=== PATIENT | female | born 1985 | race Caucasian/White ===

== ENCOUNTER 2019-02-07 17:34 | Emergency (ER) | payer SELFPAY ==
[~2019-02-07] VITALS: Ht 149.9 cm; Wt 49.6 kg
[2019-02-07 17:39] VITALS: BP 128/90
--- NOTE | 2019-02-07 17:45 | NUR ---
LEAD ATG DEVELOPER: FLAKITA PAGED FOR PT TO PROVIDE RESOURCES FOR SAFE DC.
[2019-02-07] MEDS ORDERED: KETOROLAC 30 MG/1 ML IM ONE (19:30)
[2019-02-07] MEDS ORDERED: KETOROLAC 30 MG/1 ML ONE (19:44)
== END 2019-02-07 20:34 | disposition home or self-care (01) ==
LOC: ED 20:10
DX: S00.83XA Contusion of other part of head, initial encounter (principal); G89.11 Acute pain due to trauma; F17.200 Nicotine dependence, unspecified, uncomplicated; F11.10 Opioid abuse, uncomplicated; F15.10 Other stimulant abuse, uncomplicated; R07.89 Other chest pain; R51 Headache; Z72.9 Problem related to lifestyle, unspecified; Z75.9 Unspecified problem related to medical facilities and other health care; Z63.8 Other specified problems related to primary support group; X58.XXXA Exposure to other specified factors, initial encounter; Y93.89 Activity, other specified; Y92.89 Other specified places as the place of occurrence of the external cause; Y99.8 Other external cause status
CPT/HCPCS: 70486; 71046; 73030; 96372; 99284; J1885; 99283

== ENCOUNTER 2019-04-08 02:45 | Emergency (ER) | payer SELFPAY ==
[~2019-04-08] VITALS: Ht 149.9 cm; Wt 51.5 kg
[2019-04-08 02:49] VITALS: BP 123/73
--- NOTE | 2019-04-08 03:14 | NUR ---
DR. MARTE AT BEDSIDE AT BEDSIDE EVALUATING PT
[2019-04-08] MEDS ORDERED: AZITHROMYCIN 500 MG TABLET PO ONE (03:30)
[2019-04-08] MEDS ORDERED: CEFTRIAXONE 250 MG IM ONE (03:30)
[2019-04-08] MEDS ORDERED: CEFTRIAXONE 250 MG ONE (03:33)
[2019-04-08] MEDS ORDERED: AZITHROMYCIN 250 MG TABLET ONE (03:33)
--- NOTE | 2019-04-08 03:41 | NUR ---
PT MEDCIATED PER EMAR, 5 RIGHTS ADDRESSED.
--- NOTE | 2019-04-08 03:54 | NUR ---
URINE SAMPLE PROVIDED BY PT. SENT TO LAB
[2019-04-08 04:09] LABS: CULTURE INDICATED? YES; HCG UR SG 1.016 (1.003-1.030); MICROSCOPIC AUTO
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
--- NOTE | 2019-04-08 04:44 | NUR ---
I SPOKE WITH ZAYRA FROM THE [facility]ISIS C[facility]. HE STATES THE PT CAN BE EVALUATED TONIGHT. PT PROVIDED WITH A CAB VOUCHER TO EXAM CENTER ON [address].
--- NOTE | 2019-04-08 04:55 | NUR ---
Patient/Caregiver given discharge instructions and they have confirmed that they understand the instructions. Patient ambulatory with steady gait.
== END 2019-04-08 04:56 | disposition home or self-care (01) ==
LOC: ED 03:48
DX: S70.02XA Contusion of left hip, initial encounter (principal); T76.21XA Adult sexual abuse, suspected, initial encounter; I10 Essential (primary) hypertension; F17.200 Nicotine dependence, unspecified, uncomplicated; X58.XXXA Exposure to other specified factors, initial encounter; Y93.89 Activity, other specified; Y92.009 Unspecified place in unspecified non-institutional (private) residence as the place of occurrence of the external cause; Y99.8 Other external cause status
CPT/HCPCS: 81001; 81025; 87077; 87086; 87491; 87591; 96372; 99283; J0696; 87186

== ENCOUNTER 2019-12-22 17:31 | Emergency (ER) | payer MEDICAID ==
[~2019-12-22] VITALS: Ht 149.9 cm; Wt 56.1 kg
[2019-12-22 17:40] VITALS: BP 110/50
--- NOTE | 2019-12-22 19:06 | NUR ---
PT TO ROOM FROM LOBBY
[2019-12-22 19:50] LABS: BASOPHILS # (AUTO) 0.05 x10^3/uL (0-0.1); BASOPHILS % (AUTO) 0 % (0-1); EOSINOPHILS # (AUTO) 0.22 x10^3/uL (0-0.4); EOSINOPHILS % (AUTO) 2 % (1-7); LYMPHOCYTES # (AUTO) 1.76 x10^3/uL (1-3.4); LYMPHOCYTES % (AUTO) 13 % (22-44); MD NO; MEAN CORPUSCULAR HEMOGLOBIN 28.7 pg (27.0-34.8); MEAN CORPUSCULAR HGB CONC 32.9 g/dL (32.4-35.8); MEAN CORPUSCULAR VOLUME 87.4 fL (80-100); MEAN PLATELET VOLUME 8.3 fL (7.4-10.4); MONOCYTES # (AUTO) 0.65 x10^3/uL (0.2-0.8); MONOCYTES % (AUTO) 5 % (2-9); NEUTROPHILS # (AUTO) 10.97 x10^3/uL (1.8-6.8); NEUTROPHILS % (AUTO) 80 % (42-75); PLATELET COUNT 250 x10^3/uL (130-400); RED BLOOD COUNT 4.82 x10^6/uL (3.82-5.3); RED CELL DISTRIBUTION WIDTH 14.4 % (9.6-15.2)
--- NOTE | 2019-12-22 20:25 | NUR ---
PT AMBULATORY TO THE BATHROOM WITH STEADY GAIT
[2019-12-22 20:32] LABS: ALBUMIN 3.5 g/dL (3.4-5.0); ANION GAP 4 mmol/L (5-15); CHLORIDE 104 mmol/L (98-107)
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
[2019-12-22] MEDS ORDERED: LORazepam 1MG TABLET PO ONE (21:00)
--- NOTE | 2019-12-22 21:03 | NUR ---
PT REFUSING UA AND PT REFUSING VITALS
--- NOTE | 2019-12-22 21:04 | NUR ---
ER MD HANNA STATES NOT NEED FOR MRI. PT TO BE DISCHARGED.
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
--- NOTE | 2019-12-22 21:31 | NUR ---
JACQUES IN WITH PT NOW
== END 2019-12-22 21:49 | disposition home or self-care (01) ==
LOC: ED 21:33
DX: F13.10 Sedative, hypnotic or anxiolytic abuse, uncomplicated (principal); I10 Essential (primary) hypertension; R51 Headache
CPT/HCPCS: 36415; 70450; 80048; 80307; 82040; 84703; 85025; 93005; 99284

== ENCOUNTER 2020-02-07 16:14 | Emergency (ER) | payer MEDICAID ==
[~2020-02-07] VITALS: Ht 149.9 cm; Wt 55.8 kg
--- NOTE | 2020-02-07 17:45 | NUR ---
MALCOLM ALONSO AT BEDSIDE FOR EVAL.
[2020-02-07] MEDS ORDERED: ONDANSETRON 2MG/ML, 2ML IVPush ONE (18:00)
[2020-02-07] MEDS ORDERED: SODIUM CHLORIDE FLUSH 10ML SYR IVF ONE (18:00)
[2020-02-07] MEDS ORDERED: SODIUM CHLORIDE 0.9% 1,000ML IVBOLUS ONE (18:00)
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
[2020-02-07 18:22] LABS: BASOPHILS # (AUTO) 0.03 x10^3/uL (0-0.1); BASOPHILS % (AUTO) 0 % (0-1); EOSINOPHILS # (AUTO) 0.51 x10^3/uL (0-0.4); EOSINOPHILS % (AUTO) 6 % (1-7); LYMPHOCYTES # (AUTO) 2.15 x10^3/uL (1-3.4); LYMPHOCYTES % (AUTO) 24 % (22-44); MD NO; MEAN CORPUSCULAR HEMOGLOBIN 28.7 pg (27.0-34.8); MEAN CORPUSCULAR HGB CONC 33.2 g/dL (32.4-35.8); MEAN CORPUSCULAR VOLUME 86.4 fL (80-100); MEAN PLATELET VOLUME 8.5 fL (7.4-10.4); MONOCYTES % (AUTO) 7 % (2-9); NEUTROPHILS # (AUTO) 5.53 x10^3/uL (1.8-6.8); NEUTROPHILS % (AUTO) 63 % (42-75); PLATELET COUNT 320 x10^3/uL (130-400); RED BLOOD COUNT 4.95 x10^6/uL (3.82-5.3)
--- NOTE | 2020-02-07 18:30 | NUR ---
WHILE THIS RN WAS ATTEMPTING PIV, PT DEMANDED TO HAVE IT REMOVED. REFUSED TO LET THIS RN ATTEMPT AGAIN. WILL NOTIFY . UNABLE TO MEDICATE AT THIS TIME. PT DENIES NAUSEA AND DOES NOT WANT THE ZOFRAN ORDER TO BE CHANGED ODT. PT REFUSING TO PROVIDE URINE SAMPLE. PT TRANSFERED TO EMERGENCY DEPARTMENT [facility] W/ A STEADY GAIT. ROOM READY FOR PELVIC EXAM.
[2020-02-07 18:31] LABS: ALANINE AMINOTRANSFERASE 30 U/L (12-78); ALBUMIN 3.6 g/dL (3.4-5.0); ANION GAP 5 mmol/L (5-15); CALCIUM 8.5 mg/dL (8.5-10.1); CHLORIDE 102 mmol/L (98-107)
[2020-02-07 18:34] LABS: ALKALINE PHOSPHATASE 86 U/L (45-117); BILIRUBIN,TOTAL 0.5 mg/dL (0.2-1.0); CREATININE 0.89 mg/dL (0.55-1.02); TOTAL PROTEIN 7.2 g/dL (6.4-8.2)
--- NOTE | 2020-02-07 18:46 | NUR ---
MALCOLM ALONSO IN ROOM FOR PELVIC EXAM.
[2020-02-07 19:14] VITALS: BP 113/59
[2020-02-07 19:14] LABS: CLUE CELLS PRESENT (NONE SEEN); WET PREP WBCS NONE SEEN (FEW)
--- NOTE | 2020-02-07 19:14 | NUR ---
PT RESTING ON GURNEY, DROWSY. VS STABLE RESP EVEN AND UNLABORED. NADN. CALL LIGHT IN REACH. AWAITING TEST RESULTS.
--- NOTE | 2020-02-07 19:18 | NUR ---
PT STATES SHE IS UNABLE TO PROVIDE URINE SAMPLE. STATES SHE WILL TRY IN A LITTLE BIT.
--- NOTE | 2020-02-07 19:42 | NUR ---
PT REFUSING TO ATTEMPT TO PROVIDE URINE SAMPLE.
--- NOTE | 2020-02-07 20:51 | NUR ---
NANO RN: PT TO CT VIA [facility]IO
[2020-02-07] MEDS ORDERED: OMNIPAQUE 350 MG/ML, 100ML BOTTLE ONE (21:11)
--- NOTE | 2020-02-07 22:05 | NUR ---
PT LEFT PRIOR TO DC OF PIV AND GIVEN DC INSTRUCTIONS. CALL PLACED TO [facility] W/ DESCRIPTION OF PT.
== END 2020-02-07 22:19 | disposition left against medical advice (07) ==
LOC: ED 17:14
DX: N76.0 Acute vaginitis (principal); R10.31 Right lower quadrant pain; I10 Essential (primary) hypertension; F17.200 Nicotine dependence, unspecified, uncomplicated
CPT/HCPCS: 36415; 74177; 80053; 83690; 84703; 85025; 87210; 87491; 87591; 87808; 99285; Q9967

== ENCOUNTER 2021-01-22 21:22 | Inpatient (IN) | payer MEDICAID ==
[~2021-01-22] VITALS: Ht 149.9 cm; Wt 57.3 kg
[2021-01-22] MEDS ORDERED: CLINDAMYCIN PMX 600MG/50ML 50 ML IVPB ONE (22:00)
[2021-01-22] MEDS ORDERED: ONDANSETRON 2MG/ML, 2ML IVPush ONE (22:00)
[2021-01-22] MEDS ORDERED: HYDROmorphone 2 MG/ML, 1ML IVPush PRN (22:00)
[2021-01-22] MEDS ORDERED: OXYcodone/APAP 5/325MG TABLET PO ONE (22:00)
[2021-01-22] MEDS ORDERED: OXYcodone/APAP 5/325MG TABLET ONE (22:21)
[2021-01-22] MEDS ORDERED: CLINDAMYCIN PMX 600MG/50ML 50 ML ONE (22:21)
[2021-01-22 22:27] LABS: BASOPHILS % (AUTO) 1 % (0-1); EOSINOPHILS % (AUTO) 4 % (1-7); LYMPHOCYTES % (AUTO) 18 % (22-44); MEAN CORPUSCULAR HGB CONC 33.4 g/dL (32.4-35.8); MEAN PLATELET VOLUME 8.1 fL (7.4-10.4); MONOCYTES % (AUTO) 9 % (2-9); NEUTROPHILS % (AUTO) 69 % (42-75); PLATELET COUNT 280 x10^3/uL (130-400); RED BLOOD COUNT 5.16 x10^6/uL (3.82-5.3); RED CELL DISTRIBUTION WIDTH 12.9 % (9.6-15.2)
--- NOTE | 2021-01-22 22:28 | NUR ---
Pt to ER with c/o right upper tooth pain and facial swelling. Pt admits to using heroin x 1 day ago. Pt difficult IV start and upset at the multiple attempts to get an IV. Attempts made to make pt as comfortable as possible. Tech in room to attempt US IV. Pt with swollen left neck with bruising where pt states she has been injecting heroin, also c/o left neck pain. Pt wanting to leave. Physican in room to discuss importance of staying and being treated. Pt agrees to stay. Will attempt US IV. Pt medicated with percocet for pt comfort. Pt denies wanting IV dilaudid. Will monitor.
[2021-01-22 22:30] LABS: MD NO
[2021-01-22 22:39] LABS: ALBUMIN 4.1 g/dL (3.4-5.0); ANION GAP 6 mmol/L (5-15); CHLORIDE 104 mmol/L (98-107); CREATININE 0.75 mg/dL (0.55-1.02)
[2021-01-22] MEDS ORDERED: OMNIPAQUE 350 MG/ML, 100ML BOTTLE ONE (23:10)
--- NOTE | 2021-01-22 23:59 | NUR ---
Pt calm in bed, resting, awakes to verbal. Pt with no complaints at this time. Pt with RA sats in the high 80's, NC palced with sats to high 90's
--- NOTE | 2021-01-23 01:35 | NUR ---
FUR DRY CLEANER HAND: PT. REFUSING TO GO UP TO ROOM INITIALLY AND EXPRESSING FRUSTRATION OVER VISITING HOURS. THIS RN IN TO SPEAK WITH PT. PT. VERBALIZED UNDERSTANDING OF VISITING HOURS AND WILLING TO GO UP TO FLOOR AFTER FRINED GETS HER SOME ITEMS FROM [employer].
[2021-01-23 01:54] VITALS: BP 111/78
[2021-01-23] MEDS ORDERED: ACETAMINOPHEN 325 MG TABLET PO PRN (02:00)
[2021-01-23] MEDS ORDERED: ONDANSETRON 2MG/ML, 2ML IVPush PRN (02:00)
[2021-01-23] MEDS ORDERED: LACTATED RINGERS 1,000 ML IV SCH (02:00)
[2021-01-23] MEDS ORDERED: CLINDAMYCIN PMX 600MG/50ML 50 ML IV SCH (02:00)
[2021-01-23] MEDS ORDERED: LABETALOL 5MG/ML, 20ML IVPush PRN (02:00)
[2021-01-23] MEDS ORDERED: morphine SULFATE 10 MG/ML, 1ML IVPush PRN (02:00)
[2021-01-23] MEDS: OXYcodone IR 5MG TABLET PO PRN ×2 (02:31→09:02)
[2021-01-23 08:00] VITALS: BP 110/74
[2021-01-23] MEDS ORDERED: SENNA/DOCUSATE TABLET PO SCH (09:00)
== END 2021-01-23 12:50 | disposition left against medical advice (07) | DRG 603 ==
LOC: ED 01-23 00:50 → EDIP 01-23 01:15 → 3N 01-23 01:51
PROVIDERS: ADMIT Family Medicine; ATTEND Hospitalist
DX: L03.211 Cellulitis of face (principal); F11.20 Opioid dependence, uncomplicated; E87.6 Hypokalemia; F17.200 Nicotine dependence, unspecified, uncomplicated; K08.89 Other specified disorders of teeth and supporting structures; I10 Essential (primary) hypertension; M54.2 Cervicalgia; R59.1 Generalized enlarged lymph nodes; Z98.891 History of uterine scar from previous surgery; Z72.89 Other problems related to lifestyle
CPT/HCPCS: 36415; 70487; 70491; 80048; 82040; 84703; 85025; 87040; G0378; Q9967; J2270; J7120